=== PATIENT | male | born 2000 | race Caucasian/White ===

== ENCOUNTER 2023-01-24 17:35 | Emergency (ER) | payer SELFPAY ==
[2023-01-24 17:43] VITALS: RESP 18
[2023-01-24] MEDS ORDERED: HYDROmorphone 1 MG/ML 1 ML SYRINGE IM STA (17:55)
[2023-01-24] MEDS ORDERED: DIPH,PERTUS(ACELL)TETVAC-LF 0.5 ML VIAL IM ONE (17:55)
--- NOTE | 2023-01-24 18:19 | ED ---
Fall HPI - General Chief Complaint: Fall Stated Complaint: ankle injury Time Seen by Provider: 01/24/23 17:49 Source: patient Mode of arrival: ambulatory - History of Present Illness Initial Comments: William is a 22-year-old male who presents to the emergency department today for evaluation of pain in the right ankle. Patient reports that he was working on a roof that was steeply pitched, he lost his footing and slid down the roof facing the roof. He then got an edge and slipped over the edge and fell landing in a standing position on his right ankle. Patient reports he felt immediate pain in the ankle radiating up to the knee. He's been unable to bear weight on the ankle since then. Denies any pain elsewhere. Denies any hip or back pain. He has been able to hop on his left leg without pain. MD Complaint: fall - Related Data Allergies Allergy/AdvReac Type Severity Reaction Status Date / Time No Known Allergies Allergy Verified 01/24/23 18:05 Review of Systems ROS Statement: Those systems with pertinent positive or pertinent negative responses have been documented in the HPI. ROS Other: All systems not noted in ROS Statement are negative. Past Medical History Past Medical History: No Reported History History of Any Multi-Drug Resistant Organisms: None Reported Past Surgical History: No Surgical Hx Reported Past Psychological History: No Psychological Hx Reported Smoking Status: Never smoker Past Alcohol Use History: Rare Past Drug Use History: Marijuana General Exam Limitations: no limitations General appearance: alert, other (Appears uncomfortable) Head exam: Present: atraumatic, normocephalic Eye exam: Present: PERRL ENT exam: Present: normal exam Neck exam: Present: normal inspection Respiratory exam: Present: normal lung sounds bilaterally. Absent: respiratory distress Cardiovascular Exam: Present: regular rate, other (Strong DP and PT pulses bilaterally) GI/Abdominal exam: Present: soft Rectal exam: Present: deferred Extremities exam: Present: joint swelling, other (Pain and swelling of the right ankle). Absent: full ROM Back exam: Present: normal inspection, full ROM. Absent: tenderness, vertebral tenderness Neurological exam: Present: alert, oriented X3 Psychiatric exam: Present: normal affect, normal mood Skin exam: Present: abrasion (Abrasion to the left wrist and left knee) Course Vital Signs 01/24/23 01/24/23 17:39 19:25 Temperature 97.9 F 98.1 F Pulse Rate 67 74 Respiratory 18 18 Rate Blood Pressure 112/74 136/72 O2 Sat by Pulse 99 99 Oximetry Procedures - Orthopedic Splinting/Casting Injury #1 Side: right Lower Extremity Injury Location: ankle Lower Extremity Immobilizer: posterior splint Other Orthopedic Equipment: crutches Medical Decision Making - Medical Decision Making Was pt. sent in by a medical professional or institution (, MACHO, LITIGATOR, urgent care, hospital, or assisted...) When possible be specific @ -No Did you speak to anyone other than the patient for history (EMS, parent, family, police, friend...)? What history was obtained from this source @ -No Did you review nursing and triage notes (agree or disagree)? Why? @ -I reviewed and agree with nursing and triage notes Were old charts reviewed (outside hosp., previous admission, EMS record, old EKG, old radiological studies, urgent care reports/EKG's, assisted records)? Report findings @ -No old charts were reviewed Differential Diagnosis (chest pain, altered mental status, abdominal pain women, abdominal pain men, vaginal bleeding, weakness, fever, dyspnea, syncope, headache, dizziness, GI bleed, back pain, seizure, CVA, palpatations, mental health, musculoskeletal)? @ -Differential - fracture, sprain, contusion, hematoma EKG interpreted by me (3pts min.). @ -As above X-rays interpreted by me (1pt min.). @ -I see no obvious fractures or dislocations when reviewing the ankle knee and no signs of compression fractures or malalignment in the lumbar spine CT interpreted by me (1pt min.). @ -None done U/S interpreted by me (1pt. min.). @ -None done What testing was considered but not performed or refused? (CT, X-rays, U/S, labs)? Why? @ -None What meds were considered but not given or refused? Why? @ -None Did you discuss the management of the patient with other professionals (professionals i.e. MACHO Coker, LITIGATOR, lab, RT, psych nurse, social services assistant, call worker person, teacher, chairman and chief executive officer, binder caser)? Give summary @ -No Was smoking cessation discussed for >3mins.? @ -No Was critical care preformed (if so, how long)? @ -No Were there social determinants of health that impacted care today? How? (Homelessness, low income, unemployed, alcoholism, drug addiction, transportation, low edu. Level, literacy, decrease access to med. care, [place] [facility], rehab)? @ -No Was there de-escalation of care discussed even if they declined (Discuss DNR or withdrawal of care, Hospice)? DNR status @ -No What co-morbidities impacted this encounter? (DM, HTN, Smoking, COPD, CAD, Cancer, CVA, ARF, Chemo, Hep., AIDS, mental health diagnosis, sleep apnea, morbid obesity)? @ -None Was patient admitted / discharged? Hospital course, mention meds given and route, prescriptions, significant lab abnormalities, going to OR and other pertinent info. @ -Discharged Patient was seen and evaluated x-rays were obtained and reviewed by myself and the radiologist as no obvious fractures or dislocations. Given the patient's degree of pain he was placed in posterior short leg splint and given crutches. Undiagnosed new problem with uncertain prognosis? @ -No Drug Therapy requiring intensive monitoring for toxicity (Heparin, Nitro, Insulin, Cardizem)? @ -No Were any procedures done? @ -No Diagnosis/symptom? @ -Right ankle pain Acute, or Chronic, or Acute on Chronic? @ -Acute Uncomplicated (without systemic symptoms) or Complicated (systemic symptoms)? @ -Uncomplicated Side effects of treatment? @ -No Exacerbation, Progression, or Severe Exacerbation? @ -No Poses a threat to life or bodily function? How? (Chest pain, [place], [place], pneumonia, PE, COPD, DKA, ARF, appy, cholecystitis, CVA, Diverticulitis, Homicidal, Suicidal, threat to staff... and all critical care pts) @ -No Disposition Clinical Impression: Ankle pain, Fall Disposition: HOME SELF-CARE Condition: Stable Additional Instructions: REBECCA TEIXEIRA [email or web address] [email or web address] [facility] [address] [address] Is patient prescribed a controlled substance at d/c from ED?: No Referrals: Berenice Grace DO [Doctor of Osteopathic Medicine] - 1-2 days Roverto Waters DO [Primary Care Provider] - 1-2 days Jonatan Delgado DO [REFERRING] - 1-2 days Roverto Kapoor DO [REFERRING] - 1-2 days
--- NOTE | 2023-01-24 18:29 | XR ---
EXAMINATION TYPE: XR ankle complete RT DATE OF EXAM: 01/24/2023 6:24 PM CLINICAL INDICATION:Male, 22 years old with history of FALL OFF ROOF ONTO RIGHT ANKLE; H COMPARISON: None TECHNIQUE: XR ankle complete RT; ankle is imaged in frontal, lateral and oblique projections. FINDINGS: There is no evidence of acute osseous pathology. The joint spaces are well-preserved without evidenc e of subluxation or dislocation. Kager's fat pad is intact. Mild soft tissue swelling around the ankl e. No radiopaque foreign bodies are identified. IMPRESSION: 1. No evidence of acute fracture. 2. Subcutaneous swelling around the ankle likely secondary to underlying soft tissue injury.
--- NOTE | 2023-01-24 18:31 | XR ---
EXAMINATION TYPE: XR knee 4V RT DATE OF EXAM: 01/24/2023 6:24 PM CLINICAL INDICATION:Male, 22 years old with history of FALL OFF ROOF ONTO RIGHT ANKLE; [facility] COMPARISON: None. TECHNIQUE: XR knee 4V RT; examined in Frontal, lateral and oblique projections. FINDINGS: No evidence of any acute osseous pathology, soft tissue swelling, or joint effusion is no bryce. Minimal osteophyte formation involving the tibial plateau and patella. Mild joint space narrowing. IMPRESSION: 1. No acute osseous pathology. 2. Minimal osteoarthritic changes.
--- NOTE | 2023-01-24 18:32 | XR ---
EXAMINATION TYPE: XR lumbar spine 2 or 3V DATE OF EXAM: 01/24/2023 6:24 PM CLINICAL INDICATION:Male, 22 years old with history of FALL OFF ROOF ONTO RIGHT ANKLE; [facility] COMPARISON: None TECHNIQUE: XR lumbar spine 2 or 3V - Frontal, lateral and coned in L5-S1 lateral views of the spine. FINDINGS: No evidence of any acute osseous pathology. No evidence of loss of vertebral body height i s seen. There is normal alignment of the lumbar vertebral bodies. No significant degeneration changes throughout the spine. IMPRESSION: 1. No acute fracture. 2. Mild multilevel disc degeneration.
[2023-01-24 19:32] VITALS: BP 136/72; PULSE 74; TEMP 98.1
[2023-01-24] MEDS ORDERED: ACET/COD 300 MG/30 MG STARTER PACK 6 TAB BTL PO STA (19:59)
== END 2023-01-24 20:36 | disposition home or self-care (01) ==
LOC: EC 17:35
DX: M25.571 Pain in right ankle and joints of right foot (principal); F12.90 Cannabis use, unspecified, uncomplicated; Z23 Encounter for immunization; W01.0XXA Fall on same level from slipping, tripping and stumbling without subsequent striking against object, initial encounter
CPT/HCPCS: 72100; 73564; 73610; 90715; 99283; 90471; 96372; 29515; J1170